=== PATIENT | male | born 1985 | race Caucasian/White ===

== ENCOUNTER 2021-03-18 16:54 | Emergency (ER) | payer OTHER ==
[~2021-03-18] VITALS: Ht 172.7 cm; Wt 70.9 kg
[2021-03-18 17:01] VITALS: BP 147/84
--- NOTE | 2021-03-18 19:08 | PHYS DOC ---
Past History Past Surgical History: Appendectomy Alcohol Use: Rarely Adult General Chief Complaint Chief Complaint: HEADACHE HPI HPI Patient is a 35-year-old male with no past medical history presents to the emergency department with a chief complaint of migraine headaches. States that over the last couple of months he has had 7 migraines which is unusual for him. States he has had migraines 2 or 3 times a year for quite some time but has recently increased. States when they come on he had some numbness that comes first, which he thought was an aura and the headache which is usually whole head in nature with some mild nausea and photophobia. States that usually last anywhere from 4 to 8 hours and then go away at which time he is fatigued. States he has not talked to his doctor or neurologist yet. Denies any recent traumas, travels, illnesses, fevers, changes in vision, n umbness/weakness/tingling, chest pain, shortness of breath, abdominal pain, vomiting, diarrhea. Denies any alcohol or drug use. Denies any cigarette smoking. Review of Systems Review of Systems Constitutional: Denies fever or chills [] Eyes: Denies change in visual acuity, redness, or eye pain [] HENT: Denies nasal congestion or sore throat [] Respiratory: Denies cough or shortness of breath [] Cardiovascular: No additional information not addressed in HPI [] GI: Denies abdominal pain, nausea, vomiting, bloody stools or diarrhea [] : Denies dysuria or hematuria [] Musculoskeletal: Denies back pain or joint pain [] Integument: Denies rash or skin lesions [] Neurologic: Denies headache, focal weakness or sensory changes [] Endocrine: Denies polyuria or polydipsia [] All other systems were reviewed and found to be within normal limits, except as documented in this note. Allergies Allergies Allergies Coded Allergies Type Severity Reaction Last Updated Verified No Known Drug Allergies 03/18/21 No Physical Exam Physical Exam Constitutional: Well developed, well nourished, no acute distress, non-toxic appearance. [] HENT: Normocephalic, atraumatic, bilateral external ears normal, oropharynx moist, no oral exudates, nose normal. [] Eyes: PERRLA, EOMI, conjunctiva normal, no discharge. [] Neck: Normal range of motion, no tenderness, supple, no stridor. [] Cardiovascular:Heart rate regular rhythm, no murmur [] Lungs & Thorax: Bilateral breath sounds clear to auscultation [] Abdomen: , soft, no tenderness, no masses, no pulsatile masses. [] Skin: Warm, dry, no erythema, no rash. [] Back: No tenderness, no CVA tenderness. [] Extremities: No tenderness, no cyanosis, no clubbing, ROM intact, no edema. [] Neurologic: Alert and oriented X 3, normal motor function, normal sensory function, able to sit, stand and walk without issue, no focal deficits noted. [] Psychologic: Affect normal, judgement normal, mood normal. [] Current Patient Data Vital Signs Vital Signs Date Time Temp Pulse Resp B/P (MAP) Pulse Ox O2 Delivery O2 Flow Rate FiO2 03/18/21 17:01 98.2 69 16 147/84 (105) 100 Room Air EKG EKG [] Radiology/Procedures Radiology/Procedures [] Heart Score C/O Chest Pain: No Risk Factors: Risk Factors: DM, Current or recent (<one month) smoker, HTN, HLP, family history of CAD, obesity. Risk Scores: Risk Factors: DM, Current or recent (<one month) smoker, HTN, HLP, family history of CAD, obesity. Course & Med Decision Making Course & Med Decision Making Patient is a 35-year-old male who presents asymptomatic but worried that he has been having more migraines than usual. Vital signs notable for mild hypertension. Physical exam noted above. Patient states he feels well now and is not having a headache and does not require any medications. CT of the head with no obvious hemorrhage or mass. Discussed all findings with patient. Advised to follow-up in the morning with primary care physician and have an outpatient MRI set up as well as neurologic consult. Gave return precautions to the ED. Gave recommendations for migraine management at home. Patient grateful, verbalized understanding and agreed with plan of discharge. [] Dragon Disclaimer Dragon Disclaimer This electronic medical record was generated, in whole or in part, using a voice recognition dictation system. Departure Departure: Impression: Primary Impression: Migraine Disposition: HOME / SELF CARE / HOMELESS Condition: GOOD Referrals: PCP,UNKNOWN (PCP) JESSE LR MD Patient Instructions: Migraine Headache, Recurrent Migraine Headache Additional Instructions: Thanks for coming into the emergency department tonight and allowing us to take care of you. Please read the attached information. Please use a migraine cocktail at home as we discussed. Please call your primary care physician in the morning to update on ED visit and set up an outpatient MRI and neurologic consult. Please come back with new or concerning symptoms as discussed. FRANKLIN MURDOCK MD Mar 18, 2021 19:08
--- NOTE | 2021-03-18 19:15 | RAD ---
EXAMINATION: CT HEAD/BRAIN WO CLINICAL HISTORY: New migraines, numbness down right side TECHNIQUE: Serial axial images without IV contrast were obtained from the vertex to the foramen magnu m. CT Dose Reduction Employed: One or more of the following individualized dose reduction techniques wer e utilized for this examination: 1. Automated exposure control 2. Adjustment of the mA and/or kV ac cording to patient size 3. Use of iterative reconstruction technique. COMPARISON: None FINDINGS: Acute Change: No evidence of an acute infarct or other acute parenchymal process. Hemorrhage: No evidence of acute intracranial hemorrhage. Mass Lesion/Mass Effect: No evidence of intracranial mass or extraaxial fluid collection. No signific ant mass effect. Chronic Change: Bilateral basal ganglia calcification. Parenchyma: Parenchyma within normal limits for age. Ventricles: Ventricles within normal limits for age. Paranasal Sinuses and Skull Base: Mild secretions bilateral ethmoid air cells Visualized skull base a nd soft tissues unremarkable. IMPRESSION: No evidence of acute intracranial abnormality. Electronically signed by: Iglesia Christy DO (03/18/2021 7:13 PM) MAT
== END 2021-03-18 19:11 | disposition home or self-care (01) ==
LOC: ER 16:54
DX: G43.909 Migraine, unspecified, not intractable, without status migrainosus (principal)
CPT/HCPCS: 70450; 99284-25